=== PATIENT | male | born 2000 | race Caucasian/White ===

== ENCOUNTER 2020-12-19 10:16 | Inpatient (IN) | payer OTHER, SELFPAY ==
[2020-12-19 10:46] LABS: #Lymphocytes 0.5 thou/uL (1.20-3.40); #Monocytes 1.2 thou/uL (0.11-0.59); #Neutrophils 11.9 thou/uL (1.40-6.50); %Eosinophils 0.1 % (0.0-10.0); %Lymphocytes 3.4 % (28.0-48.0); %Monocytes 8.7 % (0.0-4.0); %Neutrophils 87.8 % (31.0-61.0); Hemoglobin 14.8 g/dL (14.0-18.0); Mean Corpuscular HGB CONC 35.1 g/dL (32.0-36.0); Mean Corpuscular Hemoglobin 31.2 pg (25.0-35.0); Mean Platelet Volume 8.6 fL (7.4-10.4); Platelet Count 164 thou/uL (130-400); Red Blood Cell (RBC) Count 4.75 mill/uL (4.00-5.20); White Blood Cell (WBC) Count 13.6 thou/uL (4.8-10.8)
[2020-12-19] MEDS ORDERED: Morphine 4 MG/ML VIAL ONE (11:04)
[2020-12-19] MEDS ORDERED: Ketorolac Tromethamine 30 MG/ML VIAL ONE ×2 (11:04→17:17)
[2020-12-19] MEDS ORDERED: Ondansetron PF 4 MG/2 ML Vial ONE ×2 (11:04→17:17)
[2020-12-19] MEDS ORDERED: Boostrix 0.5 ML (Tdap) VIAL ONE (11:04)
[2020-12-19 11:18] LABS: ALT (SGPT) 26 U/L (8-55); AST (SGOT) 45 U/L (5-34); Albumin 4.6 g/dL (3.5-5.0); Alkaline Phosphatase 55 U/L (50-130); BUN (Urea Nitrogen) 10 mg/dL (8.9-20.6); Bilirubin, Total 2.5 mg/dL (0.2-1.2); Calc. Creatinine Clearance 0 mL/min (70-130); Calcium 9.4 mg/dL (7.8-10.44); Glucose 159 mg/dL (70-105)
[2020-12-19 11:25] LABS: Chloride 103 mmol/L (98-107); Potassium 4.3 mmol/L (3.5-5.1); Sodium 145 mmol/L (136-145)
[2020-12-19 12:10] LABS: Globulin 2.6 g/dL (2.4-3.5); Protein, Total 7.2 g/dL (6.0-8.3)
[2020-12-19] MEDS ORDERED: Ondansetron ODT 4 MG TAB PO PRN (14:01)
[2020-12-19] MEDS ORDERED: Ondansetron PF 4 MG/2 ML Vial IVP PRN (14:01)
[2020-12-19] MEDS ORDERED: Dextrose 50% Abboject 50 ML SYRINGE SLOW IVP PRN (14:01)
[2020-12-19] MEDS ORDERED: Morphine 2 MG/ML VIAL SLOW IVP PRN (14:01)
[2020-12-19] MEDS ORDERED: hydrALAZINE 20 MG/ML VIAL SLOW IVP PRN (14:01)
[2020-12-19] MEDS ORDERED: Cyclobenzaprine 10 MG TAB PO PRN (14:01)
[2020-12-19] MEDS ORDERED: Dextrose 5% in Water 1,000 ML IV PRN (14:01)
[2020-12-19] MEDS ORDERED: traMADol HCl 50 MG TAB PO PRN ×2 (14:01)
[2020-12-19] MEDS ORDERED: CEFAZOLIN 2 GM in Premix Bag 1 BAG IVPB SCH ×2 (14:30→22:00)
[2020-12-19] MEDS: Acetaminophen 500 MG TAB PO SCH ×2 (14:47→23:59)
[2020-12-19] MEDS: Ibuprofen 800 MG TAB PO SCH (14:47)
[2020-12-19] MEDS: Sodium Chloride 0.9% 1,000 ML IV SCH (14:47)
[2020-12-19 15:14] VITALS: BMI 19.2
[2020-12-19] MEDS ORDERED: Lidocaine 1% PF 5 ML VIAL ONE (17:17)
[2020-12-19] MEDS ORDERED: Rocuronium Bromide 10 MG/ML (10ML VIAL) ONE (17:17)
[2020-12-19] MEDS ORDERED: PHENYLEPHRINE-NS 100 MCG/ML 10 ML SYRINGE ONE (17:17)
[2020-12-19] MEDS ORDERED: Dexamethasone 20 MG/5 ML VIAL ONE (17:17)
[2020-12-19] MEDS ORDERED: PROPOFOL 200 MG/20 ML VIAL ONE (17:17)
[2020-12-19 17:19] LABS: Anion Gap 21 mmol/L (10-20); Carbon Dioxide 16 mmol/L (22-29)
[2020-12-19] MEDS ORDERED: Chlorhexidine Gluconate 15 ML UDCUP SSP ONE (17:31)
[2020-12-19] MEDS ORDERED: Lidocaine 1% w/Epinephrine 1:100K 20 ML VIAL ONE (17:31)
[2020-12-19] MEDS ORDERED: Hydrocortisone 1% Cream 30 GM TUBE ONE (17:31)
[2020-12-19] MEDS ORDERED: Neomycin-Polymyxin 1 ML AMP ONE (17:31)
[2020-12-19] MEDS ORDERED: Bupivacaine PF 0.5% 30 ML VIAL ONE (17:32)
[2020-12-19] MEDS ORDERED: Famotidine/PF 20 mg/2ml Vial ONE (17:37)
[2020-12-19] MEDS ORDERED: Lidocaine 2% Jelly 5 ML TUBE ONE (17:47)
[2020-12-19] MEDS ORDERED: Fentanyl 100 MCG/2 ML VIAL ONE (17:49)
[2020-12-19] MEDS ORDERED: Midazolam HCl 2 mg/2 ml Vial ONE (17:57)
[2020-12-19] MEDS ORDERED: HYDROmorphone 2 MG/ML VIAL ONE ×2 (18:34→20:54)
[2020-12-19] MEDS ORDERED: SUGAMMADEX SODIUM 200 MG/2 ML VIAL ONE (20:49)
[2020-12-19] MEDS ORDERED: Promethazine HCl 25 MG/ML VIAL IVPB PRN (20:50)
[2020-12-19] MEDS ORDERED: Promethazine HCl 25 MG/ML VIAL IM PRN (20:50)
[2020-12-19] MEDS ORDERED: HYDROmorphone 2 MG/ML VIAL SLOW IVP PRN (20:50)
[2020-12-19] MEDS ORDERED: Meperidine HCl/PF 25 MG/ML VIAL SLOW IVP PRN (20:50)
[2020-12-20] MEDS: Famotidine 20 MG TAB PO SCH ×2 (00:04→10:27)
[2020-12-20] MEDS: Ibuprofen 800 MG TAB PO SCH (00:05)
[2020-12-20] MEDS: Sodium Chloride 0.9% 1,000 ML IV SCH (00:12)
[2020-12-20] MEDS: CEFAZOLIN 2 GM in Premix Bag 1 BAG IVPB SCH ×3 (01:50→19:01)
[2020-12-20] MEDS: Acetaminophen 500 MG TAB PO SCH ×2 (01:57→10:35)
[2020-12-20 05:56] LABS: #Lymphocytes 0.5 thou/uL (1.20-3.40); #Monocytes 0.9 thou/uL (0.11-0.59); #Neutrophils 8.2 thou/uL (1.40-6.50); %Eosinophils 0.1 % (0.0-10.0); %Lymphocytes 5.6 % (28.0-48.0); %Monocytes 9.2 % (0.0-4.0); %Neutrophils 85.1 % (31.0-61.0); Hemoglobin 11.9 g/dL (14.0-18.0); Mean Corpuscular HGB CONC 35.4 g/dL (32.0-36.0); Mean Corpuscular Hemoglobin 31.9 pg (25.0-35.0); Mean Corpuscular Volume 90.2 fL (78.0-98.0); Mean Platelet Volume 9.1 fL (7.4-10.4); Platelet Count 133 thou/uL (130-400); RBC Distribution Width 11.1 % (11.5-14.5); Red Blood Cell (RBC) Count 3.74 mill/uL (4.00-5.20); White Blood Cell (WBC) Count 9.7 thou/uL (4.8-10.8)
[2020-12-20] MEDS: Ibuprofen 100 MG/5 ML UDCUP PO SCH ×3 (05:58→22:04)
[2020-12-20 06:12] LABS: Phosphorus 2.8 mg/dL (2.3-4.7)
[2020-12-20 06:15] LABS: Anion Gap 10 mmol/L (10-20); BUN (Urea Nitrogen) 12 mg/dL (8.9-20.6); Calc. Creatinine Clearance 114 mL/min (70-130); Calcium 8.5 mg/dL (7.8-10.44); Carbon Dioxide 20 mmol/L (22-29); Chloride 107 mmol/L (98-107); Glucose 122 mg/dL (70-105); Magnesium 1.6 mg/dL (1.7-2.2); Potassium 4.3 mmol/L (3.5-5.1); Sodium 133 mmol/L (136-145)
[2020-12-20 06:18] LABS: ALT (SGPT) 23 U/L (8-55); AST (SGOT) 41 U/L (5-34); Albumin 3.6 g/dL (3.5-5.0); Alkaline Phosphatase 41 U/L (50-130); Bilirubin, Direct 0.3 mg/dL (0.1-0.3); Protein, Total 5.9 g/dL (6.0-8.3)
[2020-12-20] MEDS ORDERED: Chlorhexidine Gluconate 15 ML UDCUP SSP SCH ×2 (09:00→10:15)
[2020-12-20] MEDS ORDERED: Famotidine/PF 20 mg/2ml Vial SLOW IVP SCH ×2 (11:15→21:00)
[2020-12-20] MEDS: Acetaminophen 650 MG/20.3 ML UDCUP PO SCH ×2 (12:14→19:01)
[2020-12-20 14:00] LABS: SARS-CoV-2 NAA Rapid Test Not Detected (NotDetected)
[2020-12-20] MEDS: Chlorhexidine Gluconate 15 ML UDCUP SSP SCH (22:05)
[2020-12-21] MEDS: Acetaminophen 650 MG/20.3 ML UDCUP PO SCH ×4 (00:30→18:27)
[2020-12-21 05:42] LABS: #Eosinphils 0.1 thou/uL (0.0-0.7); #Lymphocytes 1.7 thou/uL (1.20-3.40); #Monocytes 0.8 thou/uL (0.11-0.59); #Neutrophils 3.4 thou/uL (1.40-6.50); %Basophils 0.3 % (0.0-1.0); %Eosinophils 1.8 % (0.0-10.0); %Lymphocytes 28.5 % (28.0-48.0); %Monocytes 13.7 % (0.0-4.0); %Neutrophils 55.8 % (31.0-61.0); Mean Corpuscular HGB CONC 34.1 g/dL (32.0-36.0); Mean Corpuscular Hemoglobin 30.8 pg (25.0-35.0); Mean Corpuscular Volume 90.3 fL (78.0-98.0); Mean Platelet Volume 8.5 fL (7.4-10.4); Platelet Count 109 thou/uL (130-400); RBC Distribution Width 11.1 % (11.5-14.5); Red Blood Cell (RBC) Count 3.57 mill/uL (4.00-5.20); White Blood Cell (WBC) Count 6.1 thou/uL (4.8-10.8)
[2020-12-21] MEDS: Ibuprofen 100 MG/5 ML UDCUP PO SCH ×2 (05:42→12:32)
[2020-12-21 06:08] LABS: Anion Gap 13 mmol/L (10-20); BUN (Urea Nitrogen) 10 mg/dL (8.9-20.6); Calc. Creatinine Clearance 123 mL/min (70-130); Calcium 8.6 mg/dL (7.8-10.44); Carbon Dioxide 23 mmol/L (22-29); Chloride 107 mmol/L (98-107); Glucose 90 mg/dL (70-105); Magnesium 1.8 mg/dL (1.7-2.2); Phosphorus 2.2 mg/dL (2.3-4.7); Potassium 3.7 mmol/L (3.5-5.1); Sodium 139 mmol/L (136-145)
[2020-12-21] MEDS: Chlorhexidine Gluconate 15 ML UDCUP SSP SCH (08:55)
[2020-12-21] MEDS ORDERED: Enoxaparin Sodium 40 MG/0.4 ML SYRINGE SC SCH (09:00)
[2020-12-21 16:02] VITALS: BP 156/66; TEMP 97.7
[2020-12-21] MEDS ORDERED: AMOXicillin 250 MG CAP PO SCH (21:00)
== END 2020-12-21 21:10 | disposition home or self-care (01) | DRG 493 ==
LOC: ERS 10:16 → SJJU 12:59
PROVIDERS: ADMIT Specialist; ATTEND Specialist
PROC: 0CDWXZ1 Extraction of Upper Tooth, Multiple, External Approach (ICD-10-PCS; principal; 2020-12-19)
PROC: 0NST04Z Reposition Right Mandible with Internal Fixation Device, Open Approach (ICD-10-PCS; 2020-12-19)
PROC: 0NSVXZZ Reposition Left Mandible, External Approach (ICD-10-PCS; 2020-12-19)
PROC: 0CQ1XZZ Repair Lower Lip, External Approach (ICD-10-PCS; 2020-12-19)
PROC: 0QSH04Z Reposition Left Tibia with Internal Fixation Device, Open Approach (ICD-10-PCS; 2020-12-19)
PROC: 0QSL04Z Reposition Right Tarsal with Internal Fixation Device, Open Approach (ICD-10-PCS; 2020-12-19)
PROC: 0QSKXZZ Reposition Left Fibula, External Approach (ICD-10-PCS; 2020-12-19)
PROC: 0QSNXZZ Reposition Right Metatarsal, External Approach (ICD-10-PCS; 2020-12-19)
DX: S82.302A Unspecified fracture of lower end of left tibia, initial encounter for closed fracture (principal); S02.611A Fracture of condylar process of right mandible, initial encounter for closed fracture; S02.612A Fracture of condylar process of left mandible, initial encounter for closed fracture; S02.601A Fracture of unspecified part of body of right mandible, initial encounter for closed fracture; F17.210 Nicotine dependence, cigarettes, uncomplicated; S01.511A Laceration without foreign body of lip, initial encounter; S09.90XA Unspecified injury of head, initial encounter; R40.2412 Glasgow coma scale score 13-15, at arrival to emergency department; Z20.822 Contact with and (suspected) exposure to COVID-19; S02.5XXA Fracture of tooth (traumatic), initial encounter for closed fracture; S82.402A Unspecified fracture of shaft of left fibula, initial encounter for closed fracture; S92.111A Displaced fracture of neck of right talus, initial encounter for closed fracture; S92.331A Displaced fracture of third metatarsal bone, right foot, initial encounter for closed fracture; S92.341A Displaced fracture of fourth metatarsal bone, right foot, initial encounter for closed fracture; V49.40XA Driver injured in collision with unspecified motor vehicles in traffic accident, initial encounter; Z91.041 Radiographic dye allergy status
CPT/HCPCS: 36415; 70486; 76000; 80048; 80053; 80076; 83735; 84100; 85025; 90471; 90715; 96365; 96366; 96375; C1713; C1769; G0390; J0690; J1100; J1170; J1650; J1885; J2250; J2270; J2405; J2704; J3010; S0020; S0028; U0002; U0003; U0005